=== PATIENT | male | born 1975 | race Caucasian/White ===

== ENCOUNTER → 2021-05-24 | Outpatient (CLI) | payer OTHER ==
--- NOTE | 2021-05-24 12:31 | REP ---
INDICATION: M79.661 PAIN IN RIGHT LOWER LEG. COMPARISON: None. TECHNIQUE: AP and lateral FINDINGS: There is been previous ACL reconstruction. 1 anchor devices seen in the distal femur and another in the proximal tibia. There is no acute fracture or destructive osseous lesion. IMPRESSION: No acute abnormality is noted. <Electronically signed by Avni Lemos > 05/24/21 [id number]
--- NOTE | 2021-05-24 12:32 | REP ---
INDICATION: M25.571 PAIN IN RIGHT ANKLE AND JOINTS OF RIGHT FOOT. COMPARISON: None. TECHNIQUE: Four views FINDINGS: The joint spaces are symmetric and relatively well maintained. There is no evidence of acute fracture or destructive osseous lesion. IMPRESSION: Negative. <Electronically signed by Avni Lemos > 05/24/21 [id number]
--- NOTE | 2021-05-24 12:33 | REP ---
INDICATION: M25.571 PAIN IN RIGHT ANKLE AND JOINTS OF RIGHT FOOT. COMPARISON: None. TECHNIQUE: Four views FINDINGS: No acute fracture or destructive osseous lesion. The mortise is intact. IMPRESSION: Within normal limits <Electronically signed by Avni Lemos > 05/24/21 [id number]
== END ==
LOC: M WUC 11:48
PROVIDERS: ATTEND Physician Assistant
DX: M79.661 Pain in right lower leg (principal); M25.571 Pain in right ankle and joints of right foot

== ENCOUNTER → 2024-12-25 | Outpatient (REF) | payer OTHER | LOC: M LAB REF 15:28 | PROVIDERS: ATTEND Surgery | DX: L72.12 Trichodermal cyst (principal) ==